=== PATIENT | female | born 1970 | race Caucasian/White ===

== ENCOUNTER → 2017-03-15 | Outpatient (CLI) | payer OTHER ==
[~2017-03-15] MED LIST: PANT40TA PO; PROP40TA5 PO; TPM25 PO; VENL150C56 PO
--- NOTE | 2017-03-16 13:16 | MAMMOGRAPHY REPORT ---
BILATERAL DIGITAL SCREENING MAMMOGRAM TOMOSYNTHESIS WITH CAD: 03/15/2017 CLINICAL HISTORY: Routine screening examination. TECHNIQUE: Breast tomosynthesis in addition to standard 2D mammography was performed. Current study was also evaluated with a Computer Aided Detection (CAD) system. COMPARISON: Comparison is made to exams dated: 03/12/2016 mammogram, 10/30/2015 mammogram, 04/29/2015 mammogram, 04/29/2015 ultrasound, 03/11/2015 mammogram, and 03/07/2014 mammogram - [facility]. BREAST COMPOSITION: There are scattered areas of fibroglandular density in both breasts. FINDINGS: There is evidence of prior reduction mammoplasty. Mild involutional changes compared to prior mammograms. No new suspicious mass, architectural distortion or cluster of microcalcification s is seen. IMPRESSION: ACR BI-RADS CATEGORY 1: NEGATIVE There is no mammographic evidence of malignancy. A 1 year screening mammogram is recommended. The p atient will receive written notification of the results. Approximately 10% of breast cancers are not detected with mammography. A negative mammographic repor t should not delay biopsy if a clinically suggestive mass is present. Paige Mccabe M.D. ay/:03/15/2017 21:49:36 Postmaster: Lizz REINOSO(R)(M), [facility] letter sent: Normal 1/2 BI-RADS Code: ACR BI-RADS Category 1: Negative
== END | disposition home or self-care (01) ==
LOC: C.MAMM 11:04
PROVIDERS: ATTEND Internal Medicine
DX: Z12.31 Encounter for screening mammogram for malignant neoplasm of breast (principal)

== ENCOUNTER → 2017-03-22 | Outpatient (CLI) | payer OTHER ==
[2017-03-22 13:04] LABS: ALT/SGPT 27 U/L (12-78); AST/SGOT 17 U/L (15-37); BLOOD UREA NITROGEN 6 mg/dl (7-18); BUN/CREATININE RATIO 6.4 (10-20); CALCIUM 8.6 mg/dl (8.5-10.1); CARBON DIOXIDE 24 mmol/L (21-32); CHLORIDE 108 mmol/L (98-107); CREATININE 0.91 mg/dl (0.60-1.20); GLUCOSE 89 mg/dl (70-99); POTASSIUM 3.9 mmol/L (3.5-5.1); SODIUM 140 mmol/L (136-145)
[2017-03-22 13:17] LABS: ALB/GLOB RATIO 1.1 (0.9-2); ALKALINE PHOSPHATASE 79 U/L (45-117); CHOLESTEROL 197 mg/dl (0-200); CHOLESTEROL/HDL RATIO 3.3; HDL CHOLESTEROL 59 mg/dl; LDL CHOLESTEROL CALCULATED 116 mg/dl; TRIGLYCERIDES 112 mg/dl (0-150); VERY LOW DENSITY LIPOPROT CALC 22 mg/dl
== END | disposition home or self-care (01) ==
LOC: C.LAB1850 09:52
PROVIDERS: ATTEND Internal Medicine
DX: E55.9 Vitamin D deficiency, unspecified (principal); Z13.220 Encounter for screening for lipoid disorders; R51 Headache

== ENCOUNTER → 2018-02-15 | Outpatient (CLI) | payer OTHER ==
--- NOTE | 2018-02-16 07:52 | MAMMOGRAPHY REPORT ---
BILATERAL DIGITAL DIAGNOSTIC MAMMOGRAM TOMOSYNTHESIS WITH CAD AND TARGETED LEFT ULTRASOUND: 02/15/2018 CLINICAL HISTORY: 47-year-old woman presents with a report of left breast itchiness and also a small pea-sized palpable lump in the approximate 9:00 breast that she noticed 2 months ago. She has a hist ory of bilateral reduction mammoplasty performed between 2013 and 2014. TECHNIQUE: Bilateral breast tomosynthesis in addition to standard 2D mammography was performed. Curre nt study was also evaluated with a Computer Aided Detection (CAD) system. COMPARISON: Comparison is made to exams dated: 03/15/2017 mammogram, 03/12/2016 mammogram, 03/11/2015 m ammogram, 03/07/2014 mammogram - [facility], 12/04/2011 mammogram, and 11/25/2010 [facility]og [facility]. BREAST COMPOSITION: There are scattered areas of fibroglandular density in both breasts. FINDINGS: There is evidence of prior reduction mammoplasty. The glandular pattern is similar to prio r postreduction mammograms, with stable asymmetries in the lateral aspect of each breast. A triangle palpable marker overlies the medial anterior left breast at approximately 9:00, denoting the area of palpable lump pointed out by the patient. There is no evidence of a new suspicious mass, asymmetry, area of architectural distortion or suspicious calcifications near the area of concern or elsewhere throughout the remainder of each breast. Targeted ultrasound was performed in the medial left breast. The patient was unable to pinpoint the exact lump during my diagnostic evaluation, and therefore I was unable to palpate it myself. However , I scanned the 9:00, 8:00 and 10:00 axes of the left breast in the area where she thinks the lump wa s located for further evaluation. On targeted ultrasound of the left medial breast, there is no evid ence of a suspicious solid or cystic mass. No focal skin thickening or drainable fluid collection. IMPRESSION: ACR BI-RADS CATEGORY 2: BENIGN, TARGETED ULTRASOUND ACR BI-RADS CATEGORY 2: BENIGN 1. Stable bilateral mammograms, without mammographic evidence of malignancy. 2. No targeted sonographic evidence of malignancy in the medial left breast, in the reported area of the lump which was felt by the patient. It should be noted she was unable to pinpoint the exact loc ation of the lump today so I was unable to palpate it myself. However, continued clinical follow-up and clinical monitoring is recommended, as biopsy of a clinically suspicious mass should not be precl uded by negative imaging. 3. No definite suspicious left breast abnormality is identified to explain left breast pruritus, and again continued clinical follow-up is recommended. 4. Otherwise recommend routine screening mammography in 1 year. These results and recommendations were discussed with the patient at the time of the exam. Approximately 10% of breast cancers are not detected with mammography. A negative mammographic report should not delay biopsy if a clinically suggestive mass is present. Paige Mccabe M.D. ay/:02/15/2018 11:55:42 Extractor Operator: Venancio REINOSO(Pallavi)(M), [facility] letter sent: Normal 1/2 BI-RADS Code: ACR BI-RADS Category 2: Benign Ultrasound BI-RADS: ACR BI-RADS Category 2: Benign
== END | disposition home or self-care (01) ==
LOC: C.MAMM 09:28
PROVIDERS: ATTEND Physician Assistant
DX: R92.8 Other abnormal and inconclusive findings on diagnostic imaging of breast (principal); N63.20 Unspecified lump in the left breast, unspecified quadrant

== ENCOUNTER → 2018-03-23 | Outpatient (CLI) | payer OTHER ==
[2018-03-23 15:49] LABS: ALBUMIN 3.8 gm/dl (3.4-5.0); ALKALINE PHOSPHATASE 88 U/L (45-117); ALT/SGPT 32 U/L (12-78); AST/SGOT 17 U/L (15-37); BLOOD UREA NITROGEN 6 mg/dl (7-18); CALCIUM 8.8 mg/dl (8.5-10.1); CARBON DIOXIDE 24 mmol/L (21-32); CREATININE 0.84 mg/dl (0.60-1.20); GLUCOSE 86 mg/dl (70-99); POTASSIUM 4.1 mmol/L (3.5-5.1); SODIUM 139 mmol/L (136-145); TOTAL PROTEIN 7.9 gm/dl (6.4-8.2)
== END | disposition home or self-care (01) ==
LOC: C.LAB1850 13:30
PROVIDERS: ATTEND Internal Medicine
DX: E03.9 Hypothyroidism, unspecified (principal); E55.9 Vitamin D deficiency, unspecified

== ENCOUNTER 2025-03-04 08:36 | Inpatient (IN) ==
--- NOTE | 2025-03-04 09:15 | Emergency Department Note ---
ED DC CONDITION Conditon at Discharge Condition at Discharge: Fair Impression & Plan Constipation, Abdominal pain, Colitis, Leukocytosis ED Provider Note CHIEF COMPLAINT: Abdominal pain HISTORY OF PRESENT ILLNESS: This 54F patient with a history of gastroparesis, chronic constipations, NAFLD, IBS presents to the emergency department with LLQ abdominal pain, nausea, constipation for 1.5 weeks. Pain is 10/10 and radiates laterally and inferiorly. No bowel movement since Wednesday-normally has BM daily. New onset dizziness, chills. Reports taking zofran at home without relief. Tried to take mg citrate at home this morning which resulted in 1x nonbloody yellow emesis. Enemas x2 at home without relief. Last PO last night at 6pm. No history of bowel obstructions. REVIEW OF SYSTEMS: A review of systems was performed with positives and pertinent negatives listed in the history of present illness. 10 systems were reviewed and are otherwise negative. ALLERGIES: see below MEDICATIONS: see below PMH: see below SOCIAL HISTORY: see below DDx: Bowel obstruction, constipation, diverticulitis, gastroenteritis PHYSICAL EXAM: Vital signs reviewed. General: generally well-appearing 54-year-old female, in some discomfort. HEENT: No scleral icterus, PERRLA, neck supple. Atraumatic. Cardiovascular: Regular rate and rhythm, no extra sounds. Pulmonary: Clear to auscultation bilaterally, normal work of breathing. Abdomen: Soft, Mild diffuse abdominal tenderness positive guarding, no rebound, mildly distended, positive bowel sounds. Musculoskeletal: Atraumatic, no peripheral edema. Neurologic: Patient awake alert and oriented x 3, speech is clear Skin: Warm, dry, no rash EMERGENCY DEPARTMENT COURSE/MDM: [] MONITORING: An order for cardiac monitoring was placed and the patient is noted to be in a normal sinus rhythm at 74 beats per minute. RADIOLOGY: CT of the abdomen pelvis to my interpretation reveals liquid stool throughout the colon with some colonic distention, no clear evidence of obstruction. Per radiology: IMPRESSION: * Findings suggesting acute colitis with mild inflammation along the distal transverse and descending colon. The proximal colon is distended and filled with liquid stool. No significant colonic wall thickening or abrupt caliber change/transition point. Acute colitis could be infectious or inflammatory (i.e. Crohn's) in etiology. * Mild colonic diverticulosis without findings of acute diverticulitis. * Appendix is not identified. * Additional chronic and/or incidental findings as detailed above. DISPOSITION: Past Med/Surg History Problem List (Updated 03/04/25 @ 14:34 by Marcela Llamas MD) Leukocytosis (Acute) Colitis (Acute) Abdominal pain (Acute) Constipation (Acute) Encounter for health maintenance examination (Chronic) Chronic cough Allergic rhinitis with postnasal drip Asthma Abnormal x-ray Lumbar radiculopathy Hair loss Chronic constipation Gastroparesis Breast pain, right Breast pain, left Reactive airway disease Mixed hyperlipidemia Metabolic syndrome Prediabetes EKG abnormalities Restless leg syndrome Paresthesias Plantar fasciitis Pain in both feet Vitamin B12 deficiency Breast hypertrophy Seborrheic keratosis Plantar fasciitis, bilateral Chronic migraine Cervicalgia Irritable bowel syndrome with diarrhea Vitamin D deficiency Sleep disturbance Hypothyroidism Classic migraine with aura Anxiety Actinic keratosis Acid reflux disease Medical History (Updated 03/04/25 @ 14:34 by Marcela Llamas MD) Shortness of breath Recurrent upper respiratory infection (URI) Vaginal Pap smear with ASC-US Abdominal pain Sinusitis NAFLD (nonalcoholic fatty liver disease) Leg pain Gait abnormality Microalbuminuria Acid reflux Hypothyroidism IBS (irritable bowel syndrome) Prediabetes Restless leg syndrome NAFLD (nonalcoholic fatty liver disease) Gastroparesis Chronic constipation Asthma well controll with advair daily Chronic sinusitis, unspecified SOBOE (shortness of breath on exertion) Nausea chronic - off/on History of COVID-19 Fall 2022: loss of taste and smell, severe flu symptoms - still has altered taste and smell currently. October 2021. Loss of taste/smell, aches, fever, cough. No current problems Anxiety Chronic migraine Surgical History Status post breast reduction second surgery with Dr Carr (2021) History of carpal tunnel release right History of esophagogastroduodenoscopy (EGD) History of bilateral breast reduction surgery (~2012) History of carpal tunnel surgery of left wrist x2 History of reversal of tubal ligation History of bilateral tubal ligation History of colonoscopy History of oral surgery precancerous cysts removed from jaw bone at age 15 History of tooth extraction History of wisdom tooth extraction History of tonsillectomy History of endoscopic sinus surgery History of cryosurgery Cervix H/O abdominoplasty S/P laparoscopic hysterectomy Supracervical Family History Mother Ovarian cancer Heart disease Hypothyroidism Myocardial infarction Multiple sclerosis Diabetes Father Heart disease Myocardial infarction Diabetes Grandfather Breast cancer Daughter Thalassemia Brother Graves disease Other No family history of adverse response to anesthesia Denies family history of Colorectal cancer Social History Smoking Status: Never smoker Second Hand Exposure: No; Do You Dip or Chew Tobacco: No; Hx Alcohol Use: No Hx Substance Use: No Preferred Language: Arabic Communication Ability: Effective Advertising Photographer Required: No Beliefs That Will Affect Care: None marital status: Current Living Situation: Spouse Current Living Situation Comment: Lives with current occupational status: employed 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 [employer] Feels Safe at Home: Yes Childhood Exposure to Second-Hand Smoke: Yes (parents smoked) Physical Activity Frequency: 3-4 Times per Week Seatbelt Use: always Sunscreen Use: Yes Assistive Devices: Glasses Allergies Allergies Allergy/AdvReac Type Severity Reaction Status Date / Time clarithromycin AdvReac Intermediate Nausea Verified 03/04/25 12:30 clavulanic acid AdvReac Intermediate Vomiting Verified 03/04/25 12:30 amoxicillin [From Augmentin] AdvReac Mild Vomiting Verified 03/04/25 12:30 codeine AdvReac Mild Vomiting Verified 03/04/25 12:30 metronidazole AdvReac Mild NAUSEA AND Verified 03/04/25 12:30 VOMITING Home Meds Home Medications Medication Instructions Recorded Confirmed famotidine 20 mg tablet 20 mg PO DAILY 03/04/25 03/04/25 ondansetron 4 mg disintegrating 4 mg PO BID PRN Nausea And Vomiting 03/04/25 03/04/25 tablet pantoprazole 40 mg tablet,delayed 40 mg PO DAILY 03/04/25 03/04/25 release spironolactone 50 mg tablet 50 mg PO BID 03/04/25 03/04/25 Previous Rx's Medication Instructions Recorded mecobalamin (vitamin B12) 1,000 1,000 mcg PO QAM #90 tabs 02/15/25 mcg chewable tablet levothyroxine 75 mcg tablet See Rx Instructions .Route .COMPLEX 03/04/25 Results & Data (ED) Vital Signs Vital Signs - 24 hr 03/04/25 08:50 03/04/25 09:23 03/04/25 09:26 Temperature 36.3 C L Temperature Source Temporal Artery Scan Pulse Rate 92 H 78 Pulse Rate [Apical] 74 Respiratory Rate 20 18 Respiratory Effort / Characteristics Non-Labored Spontaneous Non-Labored Respiratory Depth Normal Normal Respiratory Pattern Regular Blood Pressure 117/74 Blood Pressure [Right Arm] 148/94 H Blood Pressure Mean 88 Blood Pressure Mean [Right Arm] 112 Pulse Oximetry 99 99 Oxygen Delivery Method Room Air Room Air Sepsis Recent Fever Within 48 Hours No Sepsis New/Unexplained Change in Mental Status N/A Sepsis Action Taken by Nursing No Action Required 03/04/25 12:08 Temperature Temperature Source Pulse Rate Pulse Rate [Apical] 79 Respiratory Rate 25 H Respiratory Effort / Characteristics Respiratory Depth Respiratory Pattern Blood Pressure Blood Pressure [Right Arm] 148/91 H Blood Pressure Mean Blood Pressure Mean [Right Arm] 110 Pulse Oximetry 97 Oxygen Delivery Method Room Air Sepsis Recent Fever Within 48 Hours Sepsis New/Unexplained Change in Mental Status Sepsis Action Taken by Nursing Laboratory Data 03/04/25 09:13 03/04/25 09:13 Lab Results 03/04/25 Range/Units 09:13 WBC 15.28 H (4.8-10.8) K/ul RBC 5.79 H (4.20-5.40) M/uL Hgb 17.8 H (12.0-16.0) g/dl Hct 51.6 H (37.0-47.0) % MCV 89.1 (80.0-100.0) fL MCH 30.7 (25.0-34.0) pg MCHC 34.5 (32.0-36.0) g/dL RDW Std Deviation 42.1 (36.4-46.3) fL RDW Coeff of Marry 12.9 (11.5-14.5) % Plt Count 284 (130-400) K/uL MPV 9.6 (9.4-12.4) fL Immature Gran % (Auto) 0.5 % Neut % (Auto) 84.4 % Lymph % (Auto) 9.8 % [place] % (Auto) 4.8 % Eos % (Auto) 0.1 % Baso % (Auto) 0.4 % Neut # (Auto) 12.90 H (1.40-6.50) K/uL Lymph # (Auto) 1.49 (1.20-3.40) K/uL [place] # (Auto) 0.74 H (0.11-0.59) K/uL Eos # (Auto) 0.02 (0.00-0.50) K/uL Baso # (Auto) 0.06 (0.00-0.20) K/uL Immature Gran # (Auto) 0.07 (0.01-0.20) K/uL Sodium 138 (136-145) mmol/L Potassium 4.3 (3.5-5.1) mmol/L Chloride 101 (98-107) mmol/L Carbon Dioxide 27 (21-32) mmol/L Anion Gap 10 (3-11) BUN 11 (6-23) mg/dl Creatinine 1.03 (0.6-1.2) mg/dl Est Cr Clr Drug Dosing 49.8 ml/min eGFR 64.21 BUN/Creatinine Ratio 10.7 (10-20) Glucose 123 H (70-99(Fasting)) mg/dl Calcium 10.8 H (8.6-10.3) mg/dl Total Bilirubin 0.6 (0.2-1.0) mg/dl AST 17 (13-39) U/L ALT 16 (7-52) U/L Alkaline Phosphatase 75 (34-104) U/L Total Protein 8.5 H (6.0-8.3) gm/dl Albumin 5.3 H (3.4-5.0) gm/dl Globulin 3.2 (2.5-4.0) gm/dl Albumin/Globulin Ratio 1.7 (0.9-2) Lipase 41 (11-82) U/L Administered Medications Hydromorphone HCl (Hydromorphone Inj 1 Mg/Ml Syringe) 1 mg IV Q4H PRN PRN Reason: Pain Scale 6,7,8,9,10 Stop: 03/18/25 12:47 Last Admin: 03/04/25 13:25 Dose: 1 mg Documented By: LAURIE Discontinued Medications Bisacodyl (Bisacodyl 10 Mg Supp) 10 mg OR NOW STA Stop: 03/04/25 12:12 Last Admin: 03/04/25 13:25 Dose: 10 mg Documented By: LAURIE Sodium Chloride (Nss) 1,000 mls @ 999 mls/hr IV .Q1H1M STA Stop: 03/04/25 10:30 Last Infusion: 03/04/25 12:07 Dose: Infused Documented By: Admin: 03/04/25 09:43 Dose: 999 mls/hr Documented By: GABRIEL Piperacillin Sod/Tazobactam Sod (Zosyn) 4.5 gm in 100 mls @ 200 mls/hr IV NOW ONE; Protocol Stop: 03/04/25 12:46 Last Admin: 03/04/25 13:26 Dose: 200 mls/hr Documented By: LAURIE Ioversol (Optiray 320 100ml) 94 ml IV ONCE ONE Stop: 03/04/25 10:14 Last Admin: 03/04/25 10:14 Dose: 94 ml Documented By: DK Ketorolac Tromethamine (Ketorolac Tromethamine 15 Mg/Ml Vial) 10 mg IV NOW STA Stop: 03/04/25 09:31 Last Admin: 03/04/25 09:42 Dose: 10 mg Documented By: GABRIEL Morphine Sulfate (Morphine Sulfate 4 Mg/Ml 1 Ml Carp\Vial) 4 mg IV NOW STA Stop: 03/04/25 09:40 Last Admin: 03/04/25 09:43 Dose: 4 mg Documented By: GABRIEL Ondansetron HCl (Ondansetron Inj 2 Mg/Ml 2 Ml Vial) 4 mg IV NOW STA Stop: 03/04/25 09:31 Last Admin: 03/04/25 09:43 Dose: 4 mg Documented By: GABRIEL Ondansetron HCl (Ondansetron Inj 2 Mg/Ml 2 Ml Vial) 4 mg IV NOW STA Stop: 03/04/25 12:12 Last Admin: 03/04/25 13:26 Dose: 4 mg Documented By: LAURIE Imaging Data Radiologist's Impression: Abdomen/Pelvis CT 03/04/25 09:30 HISTORY: Left lower quadrant abdominal pain. TECHNIQUE: Helical CT imaging of the abdomen and pelvis was performed with IV contrast. Images are presented in axial, sagittal, and coronal reformats. COMPARISON: CT of the abdomen pelvis with contrast dated 09/02/2023. FINDINGS: Lung Bases/Inferior Mediastinum: Unremarkable Liver: Unremarkable Gallbladder: Unremarkable Spleen: Unremarkable Adrenals: Unremarkable Pancreas: Unremarkable Kidneys: Subcentimeter hypodense cortical lesions within both kidneys are too small to accurately characterize, but favor small cyst statistically. No hydronephrosis. Stomach/Bowel: Distal esophagus is unremarkable. The stomach and duodenum are unremarkable. The small bowel loops are normal in caliber. Oral contrast is present in the colon. There is mild colonic diverticulosis. The transverse colon, ascending colon, and cecum are dilated and fluid-filled. Cecum measuring up to 6.7 cm in diameter. The appendix is not identified. Mild inflammation along the descending colon. No abrupt caliber change of the colon. Findings favoring acute nonspecific colitis. Lymph nodes: Unremarkable Vasculature: Unremarkable Pelvis: Urinary bladder is unremarkable. No adnexal mass. Uterus is either atrophic or surgically absent. Soft Tissues: Postsurgical changes of both breasts with areas of fat necrosis. Soft tissues of the body wall are otherwise unremarkable. Bones: Mild degenerative changes of the hips and pelvis. No acute osseous abnormality. IMPRESSION: * Findings suggesting acute colitis with mild inflammation along the distal transverse and descending colon. The proximal colon is distended and filled with liquid stool. No significant colonic wall thickening or abrupt caliber change/transition point. Acute colitis could be infectious or inflammatory (i.e. Crohn's) in etiology. * Mild colonic diverticulosis without findings of acute diverticulitis. * Appendix is not identified. * Additional chronic and/or incidental findings as detailed above. ACT 112: Positive. There are findings on this exam that require communication between the performing entity and the patient following Patient Test Result Information Act ([place] ACT 112) guidelines. Electronically signed by Gen Sandoval 03-04-2025 10:44 AM Discharge Plan Visit Data Chief Complaint: Abdominal Pain Stated Complaint: NO BOWELMOVEMENT, ABD PAIN, NAUSEA ED Provider: Marcela Llamas Discharge Problem: Constipation, Abdominal pain, Colitis, Leukocytosis Patient Disposition: Admitted As Inpatient Condition: Good Discharge Instructions Interventions: ED Discharge Assessment Last Done: 03/04/25 14:10 Discharge Problem: Constipation Qualifiers: Constipation type: slow transit constipation Qualified Code(s): K59.01 - Slow transit constipation Abdominal pain Qualifiers: Abdominal location: periumbilical Qualified Code(s): R10.33 - Periumbilical pain Leukocytosis Qualifiers: Leukocytosis type: bandemia Qualified Code(s): D72.825 - Bandemia
[2025-03-04 09:40] LABS: Basophils # (auto) 0.06 K/uL (0.00-0.20); Basophils % (auto) 0.4 %; Eosinophils # (auto) 0.02 K/uL (0.00-0.50); Eosinophils % (auto) 0.1 %; Hematocrit (blood only) 51.6 % (37.0-47.0); Hemoglobin 17.8 g/dl (12.0-16.0); Immature Granulocytes # (auto) 0.07 K/uL (0.01-0.20); Immature Granulocytes % (auto) 0.5 %; Lymphocytes # (auto) 1.49 K/uL (1.20-3.40); Lymphocytes % (auto) 9.8 %; Mean Corpuscular Hemoglobin 30.7 pg (25.0-34.0); Mean Corpuscular Hgb Conc 34.5 g/dL (32.0-36.0); Mean Corpuscular Volume 89.1 fL (80.0-100.0); Mean Platelet Volume 9.6 fL (9.4-12.4); Monocytes # (auto) 0.74 K/uL (0.11-0.59); Monocytes % (auto) 4.8 %; Neutrophils % (auto) 84.4 %; Platelet Count 284 K/uL (130-400); RDW Coefficient of Variation 12.9 % (11.5-14.5); RDW Standard Deviation 42.1 fL (36.4-46.3); Red Blood Count 5.79 M/uL (4.20-5.40); White Blood Count 15.28 K/ul (4.8-10.8)
[2025-03-04] MEDS: KETOROLAC TROMETHAMINE 15 MG/ML VIAL IV STA (09:42)
[2025-03-04] MEDS: MoRPHine SULFATE 4 MG/ML 1 ML CARP\\VIAL IV STA (09:43)
[2025-03-04] MEDS: SODIUM CHLORIDE 0.9% 1,000 ML IV STA (09:43)
[2025-03-04] MEDS: ONDANSETRON INJ 2 MG/ML 2 ML VIAL IV STA ×2 (09:43→13:26)
[2025-03-04 09:59] LABS: Albumin Globulin Ratio 1.7 (0.9-2); Albumin Level 5.3 gm/dl (3.4-5.0); BUN Creatinine Ratio 10.7 (10-20); Bilirubin,Total 0.6 mg/dl (0.2-1.0); Calcium 10.8 mg/dl (8.6-10.3); Creatinine Clr Calc Pharmacy 49.8 ml/min; Globulin 3.2 gm/dl (2.5-4.0); Potassium 4.3 mmol/L (3.5-5.1); Total Protein 8.5 gm/dl (6.0-8.3)
[2025-03-04] MEDS: OPTIRAY 320 100ml IV ONE (10:14)
--- NOTE | 2025-03-04 10:44 | CT Scan Report ---
HISTORY: Left lower quadrant abdominal pain. TECHNIQUE: Helical CT imaging of the abdomen and pelvis was performed with IV contrast. Images are presented in axial, sagittal, and coronal reformats. COMPARISON: CT of the abdomen pelvis with contrast dated 09/02/2023. FINDINGS: Lung Bases/Inferior Mediastinum: Unremarkable Liver: Unremarkable Gallbladder: Unremarkable Spleen: Unremarkable Adrenals: Unremarkable Pancreas: Unremarkable Kidneys: Subcentimeter hypodense cortical lesions within both kidneys are too small to accurately characterize, but favor small cyst statistically. No hydronephrosis. Stomach/Bowel: Distal esophagus is unremarkable. The stomach and duodenum are unremarkable. The small bowel loops are normal in caliber. Oral contrast is present in the colon. There is mild colonic diverticulosis. The transverse colon, ascending colon, and cecum are dilated and fluid-filled. Cecum measuring up to 6.7 cm in diameter. The appendix is not identified. Mild inflammation along the descending colon. No abrupt caliber change of the colon. Findings favoring acute nonspecific colitis. Lymph nodes: Unremarkable Vasculature: Unremarkable Pelvis: Urinary bladder is unremarkable. No adnexal mass. Uterus is either atrophic or surgically absent. Soft Tissues: Postsurgical changes of both breasts with areas of fat necrosis. Soft tissues of the body wall are otherwise unremarkable. Bones: Mild degenerative changes of the hips and pelvis. No acute osseous abnormality. IMPRESSION: * Findings suggesting acute colitis with mild inflammation along the distal transverse and descending colon. The proximal colon is distended and filled with liquid stool. No significant colonic wall thickening or abrupt caliber change/transition point. Acute colitis could be infectious or inflammatory (i.e. Crohn's) in etiology. * Mild colonic diverticulosis without findings of acute diverticulitis. * Appendix is not identified. * Additional chronic and/or incidental findings as detailed above. ACT 112: Positive. There are findings on this exam that require communication between the performing entity and the patient following Patient Test Result Information Act ([place] ACT 112) guidelines. Electronically signed by Gen Sandoval 03-04-2025 10:44 AM
--- NOTE | 2025-03-04 12:40 | History & Physical Report ---
Date of Service March 04, 2025 Assessment & Plan (1) Hypothyroidism: (2) Acid reflux disease: Plan 54-year-old female suffers from chronic constipation presents with periumbilical abdominal pain for 10 days and no bowel movements for [address] scan shows a fluid-filled colon with concern for colitis. Patient has hypothyroidism minor delay in gastric emptying, metabolic syndrome, prediabetes, vitamin D deficiency #Abdominal pain, CT abdomen pelvis shows significant dilatation of the large bowel. Initiated on Zosyn in the emergency department this will be continued for concern for stercoral colitis or colitis in general. . Pain control with parenteral medications. Cathartic agents are considered, however will try to use soapsuds enemas to remove the left-sided stool mass before we try to evacuate the right-sided colon. Hold spironolactone for metabolic syndrome given its dehydration affects on constipation #Hypothyroidism. TSH is low T4 is within normal range concern that dose may be too elevated will request the patient follow-up with primary care provider DVT prevention is SCDs at this time History of Present Illness Primary Care Provider: Jeri Gage MD 54-year-old female presents with abdominal pain with a history of chronic constipation. Reportedly no bowel movement since Wednesday. Pains been for 1-1/2 weeks. Patient sees [facility] for chronic constipation. In the emergency department she had a rectal examination without much stool and attempted to collect suppository. CT scan abdomen pelvis does not show any obst ruction but significant stool retention. Patient has leukocytosis and with the significant stool retention concern for stercoral colitis. Allergies Allergy/AdvReac Type Severity Reaction Status Date / Time clarithromycin AdvReac Intermediate Nausea Verified 03/04/25 12:30 clavulanic acid AdvReac Intermediate Vomiting Verified 03/04/25 12:30 amoxicillin [From Augmentin] AdvReac Mild Vomiting Verified 03/04/25 12:30 codeine AdvReac Mild Vomiting Verified 03/04/25 12:30 metronidazole AdvReac Mild NAUSEA AND Verified 03/04/25 12:30 VOMITING Home Medications Medication Instructions Recorded Confirmed Type mecobalamin (vitamin B12) 1,000 1,000 mcg PO QAM #90 tabs 02/15/25 03/04/25 Rx mcg chewable tablet famotidine 20 mg tablet 20 mg PO DAILY 03/04/25 03/04/25 History levothyroxine 75 mcg tablet See Rx Instructions .Route .COMPLEX 03/04/25 03/04/25 Rx ondansetron 4 mg disintegrating 4 mg PO BID PRN Nausea And Vomiting 03/04/25 03/04/25 History tablet pantoprazole 40 mg tablet,delayed 40 mg PO DAILY 03/04/25 03/04/25 History release spironolactone 50 mg tablet 50 mg PO BID 03/04/25 03/04/25 History Past Med/Surg History Problem List (Updated 01/16/25 @ 15:17 by Jeri Gage MD) Encounter for health maintenance examination (Chronic) Chronic cough Allergic rhinitis with postnasal drip Asthma Abnormal x-ray Lumbar radiculopathy Hair loss Chronic constipation Gastroparesis Breast pain, right Breast pain, left Reactive airway disease Mixed hyperlipidemia Metabolic syndrome Prediabetes EKG abnormalities Restless leg syndrome Paresthesias Plantar fasciitis Pain in both feet Vitamin B12 deficiency Breast hypertrophy Seborrheic keratosis Plantar fasciitis, bilateral Chronic migraine Cervicalgia Irritable bowel syndrome with diarrhea Vitamin D deficiency Sleep disturbance Hypothyroidism Classic migraine with aura Anxiety Actinic keratosis Acid reflux disease Medical History (Updated 01/16/25 @ 15:17 by Jeri Gage MD) Shortness of breath Recurrent upper respiratory infection (URI) Vaginal Pap smear with ASC-US Abdominal pain Sinusitis NAFLD (nonalcoholic fatty liver disease) Leg pain Gait abnormality Microalbuminuria Acid reflux Hypothyroidism IBS (irritable bowel syndrome) Prediabetes Restless leg syndrome NAFLD (nonalcoholic fatty liver disease) Gastroparesis Chronic constipation Asthma well controll with advair daily Chronic sinusitis, unspecified SOBOE (shortness of breath on exertion) Nausea chronic - off/on History of COVID-19 Fall 2022: loss of taste and smell, severe flu symptoms - still has altered taste and smell currently. October 2021. Loss of taste/smell, aches, fever, cough. No current problems Anxiety Chronic migraine Surgical History Status post breast reduction second surgery with Dr Carr (2021) History of carpal tunnel release right History of esophagogastroduodenoscopy (EGD) History of bilateral breast reduction surgery (~2012) History of carpal tunnel surgery of left wrist x2 History of reversal of tubal ligation History of bilateral tubal ligation History of colonoscopy History of oral surgery precancerous cysts removed from jaw bone at age 15 History of tooth extraction History of wisdom tooth extraction History of tonsillectomy History of endoscopic sinus surgery History of cryosurgery Cervix H/O abdominoplasty S/P laparoscopic hysterectomy Supracervical Family History Mother Ovarian cancer Heart disease Hypothyroidism Myocardial infarction Multiple sclerosis Diabetes Father Heart disease Myocardial infarction Diabetes Grandfather Breast cancer Daughter Thalassemia Brother Graves disease Other No family history of adverse response to anesthesia Denies family history of Colorectal cancer Social History Smoking Status: Never smoker Second Hand Exposure: No; Do You Dip or Chew Tobacco: No; Hx Alcohol Use: No Hx Substance Use: No Preferred Language: [place] Communication Ability: Effective Automobile Rental Agent Required: No Beliefs That Will Affect Care: None marital status: Current Living Situation: Spouse Current Living Situation Comment: Lives with current occupational status: employed 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 [employer] Feels Safe at Home: Yes Childhood Exposure to Second-Hand Smoke: Yes (parents smoked) Physical Activity Frequency: 3-4 Times per Week Seatbelt Use: always Sunscreen Use: Yes Assistive Devices: Glasses Review of Systems Review of Systems: Moderate distress and fatigue no headache, no visual changes no speech or swallowing issues no chest pain, pressure or palpitations no shortness of breath, cough or wheezes Periumbilical abdominal pain crampy in nature crescendo decrescendo nausea without vomiting and significant constipation no dysuria, hematuria or frequency no focal joint pain or swelling no back pain, CVA tenderness or radicular pain no bruising, bleeding or rashes no focal signs of weakness or numbness or altered sensation no complaints of anxiety or depression.. Physical Exam Physical Exam: The patient appeared well nourished and normally developed. Vital signs as documented. Head exam is normocephalic atraumatic Neck is without JVD, thyromegaly, or carotid bruits. Lungs are clear to auscultation, no focal loss of breath sounds Cardiac exam, Rhythm is regular.. No murmurs, rubs or gallops. Abdominal exam reveals normal to hyperactive bowel sounds, soft minor discomfort to the bilateral lower quadrants no rebound or guarding Extremities are nonedematous and both pedal pulses are present Neurologic exam is alert and oriented, no focal loss of strength or sensation Skin is without bruises or rashes Psychologically is without concerns for anxiety or depression.. Results & Data Results & Data Vital Signs (Past 12 Hours) Vital Signs Temp Pulse Pulse Resp BP BP Pulse Ox 03/04/25 12:08 79 25 H 148/91 H 97 03/04/25 09:26 78 03/04/25 09:23 74 18 148/94 H 99 03/04/25 08:50 97.3 F L 92 H 20 117/74 99 O2 Del Method 03/04/25 12:08 Room Air 03/04/25 09:26 03/04/25 09:23 Room Air 03/04/25 08:50 Room Air Laboratory Results reviewed cbc reviewed chemistry Code Status & VTE Plan VTE Prophylaxis Plan VTE Prophylaxis will be ordered: Yes PG Care Time/CCT Total # of Minutes Spent Total Time Spent with Patient: Total time spent is greater than 50% in coordination of care (as documented) at patient's floor/unit and/or counseling patient: Coding Level of Care Code 44445 INT INP/OBS CARE 2/55MIN Diagnoses Hypothyroidism E03.9 Acid reflux disease K21.9
[2025-03-04] MEDS ORDERED: HYDROmorphone INJ 0.5 MG/0.5 ML SYR IV PRN (12:48)
[2025-03-04] MEDS: HYDROmorphone INJ 1 MG/ML SYRINGE IV PRN (13:25)
[2025-03-04] MEDS: bisacodyL 10 MG SUPP PR STA (13:25)
[2025-03-04] MEDS: PIPERACILLIN/TAZOBACTAM 4.5 GM/100 ML BAG IV ONE (13:26)
[2025-03-04] MEDS: LACTATED RINGER'S 1,000 ML IV SCH (15:00)
[2025-03-04] MEDS: PROMETHAZINE 12.5 MG/50.5 ML BAG IV PRN (16:08)
[2025-03-04] MEDS: PIPERACILLIN/TAZOBACTAM 4.5 GM/100 ML BAG IV SCH (17:51)
[2025-03-04 18:18] LABS: Appearance Urine Clear (Clear); Bacteria Urine Automated None Seen (None Seen); Bilirubin Urine Negative (Negative); Blood Urine Negative (Negative); Cast Urine Automated 0-2 /lpf (0-2); Color Urine Dark Yellow; Epithelial Cell Urine Auto 0-2 /hpf (0-2); Glucose Urine UA Negative (Negative); Ketones Urine 1+ (Negative); Leukocyte Esterase Urine Negative (Negative); Nitrite Urine Negative (Negative); Protein Urine Trace (Negative); RBC Urine Automated 0-2 /hpf (0-2); Specific Gravity Urine > 1.045 (1.000-1.030); Urobilinogen Urine Negative (Negative); WBC Urine Automated 0-5 /hpf (0-5); pH Urine 5.5 (4.5-7.5)
[2025-03-04 18:39] LABS: Adenovirus F 40/41 PCR Not Detected (NotDetected); Astrovirus PCR Not Detected (NotDetected); Campylobacter PCR Not Detected (NotDetected); Cryptosporidium PCR Not Detected (NotDetected); Cyclospora cayetanensis PCR Not Detected (NotDetected); Entamoeba histolytica PCR Not Detected (NotDetected); Enteroaggregative E.coli(EAEC) Not Detected (NotDetected); Enteropathogenic E.coli (EPEC) Not Detected (NotDetected); Enterotoxigenic E.coli (ETEC) Not Detected (NotDetected); Giardia lamblia PCR Not Detected (NotDetected); Norovirus GI/GII PCR Not Detected (NotDetected); Plesiomonas shigelloides PCR Not Detected (NotDetected); Rotavirus A PCR Not Detected (NotDetected); Salmonella PCR Not Detected (NotDetected); Sapovirus PCR Not Detected (NotDetected); Shiga-like Toxin E.coli (STEC) Not Detected (NotDetected); Shigella/Enteroinvasive E.coli Not Detected (NotDetected); Vibrio cholerae PCR Not Detected (NotDetected); Vibrio species PCR Not Detected (NotDetected); Yersinia enterocolitica PCR Not Detected (NotDetected)
[2025-03-04] MEDS: POLYETHYLENE (MIRALAX) 17 GM PACK PO ONE (19:03)
[2025-03-05 07:57] LABS: Mean Corpuscular Hemoglobin 30.7 pg (25.0-34.0); Mean Corpuscular Hgb Conc 33.3 g/dL (32.0-36.0); Mean Corpuscular Volume 92.1 fL (80.0-100.0); Mean Platelet Volume 9.7 fL (9.4-12.4); Platelet Count 224 K/uL (130-400); RDW Coefficient of Variation 13.2 % (11.5-14.5); RDW Standard Deviation 45.1 fL (36.4-46.3); Red Blood Count 4.56 M/uL (4.20-5.40); White Blood Count 11.92 K/ul (4.8-10.8)
[2025-03-05 08:16] LABS: BUN Creatinine Ratio 11.4 (10-20); Calcium 8.5 mg/dl (8.6-10.3); Creatinine Clr Calc Pharmacy 58.6 ml/min; Potassium 3.9 mmol/L (3.5-5.1)
[2025-03-05] MEDS: bisacodyL 10 MG SUPP PR STA (13:28)
[2025-03-05] MEDS: MAGNESIUM CITRATE 296 ML/BTL PO STA (13:29)
--- NOTE | 2025-03-05 17:32 | Hospitalist Progress Note ---
Date of Service March 05, 2025 Assessment & Plan (1) Constipation: (2) Hypothyroidism: (3) Acid reflux disease: Plan 54-year-old female suffers from chronic constipation presents with periumbilical abdominal pain for 10 days and no bowel movements for [address] scan shows a fluid-filled colon with concern for colitis. Patient has hypothyroidism minor delay in gastric emptying, metabolic syndrome, prediabetes, vitamin D deficiency #Abdominal pain, CT abdomen pelvis shows significant dilatation of the large bowel. Initiated on Zosyn in the emergency department this will be continued for concern for stercoral colitis or colitis in general. . Pain control with parenteral medications. mild results with enema, discussed case with GI med, reviewed CT, will use dulcolax and mag citrate. Hold spironolactone for metabolic syndrome given its dehydration affects on constipation #Hypothyroidism. TSH is low T4 is within normal range concern that dose may be too elevated will request the patient follow-up with primary care provider DVT prevention is SCDs at this time Admission and Anticipated Discharge Date Admission Date: March 04, 2025 Subjective minor relief from enema, still no large bowel output pain is controlled Physical Exam Physical Exam: The patient appeared well nourished and normally developed. Vital signs as documented. Head exam is normocephalic atraumatic Neck is without JVD, thyromegaly, or carotid bruits. Lungs are clear to auscultation, no focal loss of breath sounds Cardiac exam, Rhythm is regular.. No murmurs, rubs or gallops. Abdominal exam reveals normal to hyperactive bowel sounds, remains soft minor discomfort to the bilateral lower quadrants no rebound or guarding Extremities are nonedematous and both pedal pulses are present Neurologic exam is alert and oriented, no focal loss of strength or sensation Skin is without bruises or rashes Psychologically is without concerns for anxiety or depression.. Results & Data Results & Data Vital Signs (Past 12 Hours) Vital Signs Temp Pulse Resp BP Pulse Ox O2 Del Method 03/05/25 09:40 98.8 F 87 18 124/79 93 Room Air Laboratory Results review cbc review chemistry i personally reviewed CT with GI safety and health consultant and discussed plan of care PG Care Time/CCT Total # of Minutes Spent Total Time Spent with Patient: Total time spent is greater than 50% in coordination of care (as documented) at patient's floor/unit and/or counseling patient: Coding Level of Care Code 52158 SUB INP/OBS CARE 235MIN Diagnoses Constipation K59.01 Constipation type: slow transit constipation Hypothyroidism E03.9 Acid reflux disease K21.9 (1) Constipation Constipation type: slow transit constipation Qualified Code(s): K59.01 - Slow transit constipation
[2025-03-05] MEDS: MAGNESIUM CITRATE 296 ML/BTL PO ONE (20:12)
[2025-03-05] MEDS: ONDANSETRON INJ 2 MG/ML 2 ML VIAL IV PRN (22:15)
[2025-03-06 07:09] LABS: Hematocrit (blood only) 45.5 % (37.0-47.0); Hemoglobin 14.8 g/dl (12.0-16.0); Mean Corpuscular Hemoglobin 30.7 pg (25.0-34.0); Mean Corpuscular Hgb Conc 32.5 g/dL (32.0-36.0); Mean Corpuscular Volume 94.4 fL (80.0-100.0); Mean Platelet Volume 9.7 fL (9.4-12.4); Platelet Count 245 K/uL (130-400); RDW Coefficient of Variation 13.2 % (11.5-14.5); Red Blood Count 4.82 M/uL (4.20-5.40); White Blood Count 11.35 K/ul (4.8-10.8)
[2025-03-06 07:28] LABS: BUN Creatinine Ratio 11.2 (10-20); Calcium 9.2 mg/dl (8.6-10.3); Creatinine Clr Calc Pharmacy 52.6 ml/min; Potassium 4.5 mmol/L (3.5-5.1)
[2025-03-06] MEDS: METHYLNALTREXONE BROMIDE 12 MG/0.6 ML VIAL SQ ONE (10:39)
--- NOTE | 2025-03-06 11:04 | CT Scan Report ---
CT OF THE ABDOMEN AND PELVIS WITHOUT CONTRAST CLINICAL HISTORY: Evaluate right colonic distention. COMPARISON STUDY: CT of the abdomen and pelvis March 04, 2025. TECHNIQUE: Axial images of the abdomen and pelvis were obtained without IV contrast. Images were revi ewed in the axial, sagittal, and coronal planes. Automated exposure control was utilized for the steven dy. A dose lowering technique was utilized adhering to the principles of ALARA. FINDINGS: Visualized portions of the lung bases are unremarkable. Linear densities represent atelecta sis. No pneumatosis, free air or portal venous gas is present. Evaluation of the abdomen and pelvis i s suboptimal on this unenhanced exam. Liver, spleen, adrenal glands, kidneys and pancreas are unremar kable. The gallbladder is mildly distended. Moderate colonic dilatation is similar to CT of March 04. Ascending colon measures 8.4 cm in transverse diameter. The colon is fluid-filled. No transition point is present. The amount of stool within the sigmoid colon has diminished since prior CT. Trace a scites and mild pericolonic stranding has developed. There are no fluid collections. There is no lymp hadenopathy. There has been interval development of prominent fluid-filled distal small bowel loops. IMPRESSION: 1. No significant change in moderate colonic dilatation, greatest within the right colon, since CT of March 04, 2025. Ascending colon measures 8.4 cm in caliber. Interval development of a small amount of a scites and mild pericolonic stranding. No transition point to suggest obstruction. The findings favor a nonspecific colitis. 2. Interval development of mildly dilated fluid-filled distal small bowel loops. ACT 112: Negative or not required by law. Electronically signed by: Jv Nixon M.D. 03/06/2025 11:03 AM
--- NOTE | 2025-03-06 13:58 | Hospitalist Progress Note ---
Date of Service March 06, 2025 Assessment & Plan (1) Constipation: (2) Hypothyroidism: (3) Acid reflux disease: Plan 54-year-old female suffers from chronic constipation presents with periumbilical abdominal pain for 10 days and no bowel movements for [address] scan shows a fluid-filled colon with concern for colitis. Patient has hypothyroidism minor delay in gastric emptying, metabolic syndrome, prediabetes, vitamin D deficiency #Abdominal pain,repeat CT abdomen pelvis after emenas and mag citrate, shows significant dilatation of the large bowel. Continues on Zosyn for concern for stercoral colitis or colitis in general. . Pain control with parenteral medications. will consult GI medicine now given diliation of large bowel. Hold spironolactone for metabolic syndrome given its dehydration affects on constipation #Hypothyroidism. TSH is low T4 is within normal range concern that dose may be too elevated will request the patient follow-up with primary care provider DVT prevention is SCDs at this time Admission and Anticipated Discharge Date Admission Date: March 04, 2025 Results & Data Results & Data Vital Signs (Past 12 Hours) Vital Signs Temp Pulse Resp BP Pulse Ox O2 Del Method 03/06/25 07:51 97.9 F 96 H 18 126/88 92 Room Air Laboratory Results reviewed cbc reviewed chemistry PG Care Time/CCT Total # of Minutes Spent Total Time Spent with Patient: Total time spent is greater than 50% in coordination of care (as documented) at patient's floor/unit and/or counseling patient: Coding Level of Care Code 25755 SUB INP/OBS CARE 2/35MIN Diagnoses Constipation K59.01 Constipation type: slow transit constipation Hypothyroidism E03.9 Acid reflux disease K21.9 (1) Constipation Constipation type: slow transit constipation Qualified Code(s): K59.01 - Slow transit constipation
--- NOTE | 2025-03-06 14:06 | Gastrointestinal Consultation ---
Date of Consultation March 06, 2025 Assessment & Plan (1) Abdominal pain: 54 year old female with history of metabolic syndrome, hypothyroidism, anxiety, asthma, chronic constipation, gastroparesis and others below who is admitted through the ED on 03/04 w/ abdominal pain, constipation and nausea w/ report of last BM 02/27. CT on arrival suggests stool burden, some inflammatory changes of descending colon but no signs of obstruction. She was treated w/ a bowel regimen (Mag citrate, enema) and IV ABX. Symptoms persist, repeat CT this AM w/o significant change in dilation, ascending colon dilation at 8.4 cm, mildly dilated fluid-filled distal small bowel. She is awake, alert and oriented w/ mild abdominal distention but no rebound/guarding. She has active bowel sounds w/ mild discomfort w/ palpation. Since CTAP this AM she endorses at least 15 non-bloody BMs w/ some improvement of her abdominal discomfort. - Negative stool PCR - Check fecal calprotectin - KUB to reassess colonic dilation - Continue gastroparesis diet as tolerated - Start Miralax 1 capful once daily - Cautious use of narcotic analgesia - Cautious use of antiemetics - Plan for OP colonoscopy unless otherwise indicated during admission I spent a total of 60 minutes on the date of service in review of patient's record, and previously obtained information in person and appropriate medical visit, discussion and education of plan, with patient and/or caregiver, placing orders for tests/referral/procedures as medically necessary and documentation of pertinent clinical information in patient's medical records for their visit today.Thank you for allowing us to participate in the care of this patient. Please call with any acute changes, questions or concerns. Please see addendum below with additional recommendation from my supervising physician. Supervising Physician Co-Signing Physician Notes I personally saw and examined the patient. I have reviewed the chart and agree with the documentation provided by the TIE TAPE MACHINE OPERATOR including discussion about the assessment, treatment and plan. Briefly, 54 year old female with history of metabolic syndrome, hypothyroidism, anxiety, asthma, chronic constipation, gastroparesis and others below who is admitted through the ED on 03/04 w/ abdominal discomfort, constipation. Suggests she has had some changes to her insurance, ran out of [employer]. When she was able to re-start the prescription this seemed too effective, inducing diarrhea so had held the medication. She presented with acute distention with a 8 to 9 cm right colon and impacted bowels. We were curb sided and suggested MiraLAX mag citrate and some Dulcolax suppository. She took that and had more pain and did not completely empty much. She did then get a repeat CT with contrast and everything came out. She had multiple bowel movements and feels a lot better. Will get a KUB and make sure that her bowels have normalized but her belly exam is benign. Supportive care and bowel regimen History of Present Illness Reason for Consultation: refractory colonic distension 8.4 cm Requesting Physician: Darinel Yi MD Attending Physician: Darinel Yi MD History of Present Illness 54 year old female with history of metabolic syndrome, hypothyroidism, anxiety, asthma, chronic constipation, gastroparesis and others below who is admitted through the ED on 03/04 w/ abdominal discomfort, constipation. Suggests she has had some changes to her insurance, ran out of [employer]. When she was able to re- start the prescription this seemed too effective, inducing diarrhea so had held the medication. Reports ongoing issues w/ constipation and recall last BM being Tuesday 02/27. She notes Wednesday she developed lower abd pain, nausea and initially felt this was related to constipation. She took a bottle of mag citrate without relief. [facility] ED care for ongoing pain, constipation and nausea. CT on arrival suggests stool burden, some inflammatory changes of descending colon but no signs of obstruction. She was treated w/ a bowel regimen (Mag citrate, enema) and IV ABX. Symptoms persist, repeat CT this AM w/o significant change in dilation, ascending colon dilation at 8.4 cm, mildly dilated fluid- filled distal small bowel loops but no transition point to suggest obstruction. She does report since CT was obtained this AM she has moved her stools about 15 times. Stools have been loose w/ some small, formed pieces. No black or bloody stools. Pain has improved some but not resolved. Now pain is only prevalent w/ palpation to her abdomen. Nausea has improved w/ bowel movements. No fever, chils, CP, SOB. Stool studies 2024: negative stool PCR CTAP 2024: No significant change in moderate colonic dilatation, greatest within the right colon, since CT of March 04, 2025. Ascending colon measures 8.4 cm in caliber. Interval development of a small amount of ascites and mild pericolonic stranding. No transition point to suggest obstruction. The findings favor a nonspecific colitis. Interval development of mildly dilated fluid-filled distal small bowel loops. CTAP 2024: Findings suggesting acute colitis with mild inflammation along the distal transverse and descending colon. The proximal colon is distended and filled with liquid stool. No significant colonic wall thickening or abrupt caliber change/transition point. Acute colitis could be infectious or inflammatory (i.e. Crohn's) in etiology. GES 2022: Findings are consistent with delayed gastric emptying for solids. EGD 2024: The examined esophagus was normal. - The entire examined stomach was normal. - The examined duodenum was normal. EGD 2019: - Normal esophagus. - Gastritis. Biopsied. - Normal examined duodenum. Colon 2019: - Non-bleeding internal hemorrhoids. - No specimens collected. Family history of GI malignancies: none Family history of IBD: none Allergies Allergy/AdvReac Type Severity Reaction Status Date / Time clarithromycin AdvReac Intermediate Nausea Verified 03/04/25 12:30 clavulanic acid AdvReac Intermediate Vomiting Verified 03/04/25 12:30 amoxicillin [From Augmentin] AdvReac Mild Vomiting Verified 03/04/25 12:30 codeine AdvReac Mild Vomiting Verified 03/04/25 12:30 metronidazole AdvReac Mild NAUSEA AND Verified 03/04/25 12:30 VOMITING Home Medications Medication Instructions Recorded Confirmed Type mecobalamin (vitamin B12) 1,000 1,000 mcg PO QAM #90 tabs 02/15/25 03/04/25 Rx mcg chewable tablet famotidine 20 mg tablet 20 mg PO DAILY 03/04/25 03/04/25 History levothyroxine 75 mcg tablet See Rx Instructions .Route .COMPLEX 03/04/25 03/04/25 Rx ondansetron 4 mg disintegrating 4 mg PO BID PRN Nausea And Vomiting 03/04/25 03/04/25 History tablet pantoprazole 40 mg tablet,delayed 40 mg PO DAILY 03/04/25 03/04/25 History release spironolactone 50 mg tablet 50 mg PO BID 03/04/25 03/04/25 History Patient History Medical History (Updated 03/04/25 @ 14:34 by Marcela Llamas MD) Shortness of breath Recurrent upper respiratory infection (URI) Vaginal Pap smear with ASC-US Abdominal pain Sinusitis NAFLD (nonalcoholic fatty liver disease) Leg pain Gait abnormality Microalbuminuria Acid reflux Hypothyroidism IBS (irritable bowel syndrome) Prediabetes Restless leg syndrome NAFLD (nonalcoholic fatty liver disease) Gastroparesis Chronic constipation Asthma well controll with advair daily Chronic sinusitis, unspecified SOBOE (shortness of breath on exertion) Nausea chronic - off/on History of COVID-fall: loss of taste and smell, severe flu symptoms - still has altered taste and smell currently. October 2021. Loss of taste/smell, aches, fever, cough. No current problems Anxiety Chronic migraine Surgical History Status post breast reduction second surgery with Dr Carr (2021) History of carpal tunnel release right History of esophagogastroduodenoscopy (EGD) History of bilateral breast reduction surgery (~2012) History of carpal tunnel surgery of left wrist x2 History of reversal of tubal ligation History of bilateral tubal ligation History of colonoscopy History of oral surgery precancerous cysts removed from jaw bone at age 15 History of tooth extraction History of wisdom tooth extraction History of tonsillectomy History of endoscopic sinus surgery History of cryosurgery Cervix H/O abdominoplasty S/P laparoscopic hysterectomy Supracervical Family History Mother Ovarian cancer Heart disease Hypothyroidism Myocardial infarction Multiple sclerosis Diabetes Father Heart disease Myocardial infarction Diabetes Grandfather Breast cancer Daughter Thalassemia Brother Graves disease Other No family history of adverse response to anesthesia Denies family history of Colorectal cancer Social History Smoking Status: Never smoker Second Hand Exposure: No; Do You Dip or Chew Tobacco: No; Hx Alcohol Use: No Hx Substance Use: No Preferred Language: Chadian Communication Ability: Effective Ux Visual Designer Required: No Beliefs That Will Affect Care: None marital status: Current Living Situation: Family Current Living Situation Comment: Lives with current occupational status: employed 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 Physical Exam Constitutional: WD/WN, vitals as above Respiratory: normal respiratory effort Cardiovascular: Rate/Rhythm: regular rate Gastrointestinal (Abdomen): mild abd distention, soft abdomen w/o rebound or guarding, bowel sounds active in all quadrants, mild discomfort w/ palpation Skin: no rashes, warm and dry Results & Data Vital Signs (Past 12 Hours) Vital Signs Temp Pulse Resp BP Pulse Ox O2 Del Method 03/06/25 07:51 97.9 F 96 H 18 126/88 92 Room Air Laboratory Results 03/06/25 Range/Units 06:47 WBC 11.35 H (4.8-10.8) K/ul RBC 4.82 (4.20-5.40) M/uL Hgb 14.8 (12.0-16.0) g/dl Hct 45.5 (37.0-47.0) % MCV 94.4 (80.0-100.0) fL MCH 30.7 (25.0-34.0) pg MCHC 32.5 (32.0-36.0) g/dL RDW Std Deviation 46.0 (36.4-46.3) fL RDW Coeff of Marry 13.2 (11.5-14.5) % Plt Count 245 (130-400) K/uL MPV 9.7 (9.4-12.4) fL Sodium 139 (136-145) mmol/L Potassium 4.5 (3.5-5.1) mmol/L Chloride 99 (98-107) mmol/L Carbon Dioxide 37 H (21-32) mmol/L Anion Gap 3 (3-11) BUN 11 (6-23) mg/dl Creatinine 0.98 (0.6-1.2) mg/dl Est Cr Clr Drug Dosing 52.6 ml/min eGFR 68.16 BUN/Creatinine Ratio 11.2 (10-20) Glucose 109 H (70-99(Fasting)) mg/dl Calcium 9.2 (8.6-10.3) mg/dl PG Care Time/CCT Total # of Minutes Spent Total Time Spent with Patient: Total time spent is greater than 50% in coordination of care (as documented) at patient's floor/unit and/or counseling patient: Coding Level of Care Code 63162 IN/OBS CONSULT LVL 4,60M Diagnoses Abdominal pain R10.33 Abdominal location: periumbilical (1) Abdominal pain Abdominal location: periumbilical Qualified Code(s): R10.33 - Periumbilical pain
--- NOTE | 2025-03-06 15:47 | XRay Report ---
KUB HISTORY: re-assess colonic dilation, COMPARISON STUDY: CT scan earlier today FINDINGS: There is mild diffuse gaseous distention of the colon measuring up to 9 cm diameter at the cecum, stable. No small bowel distention seen. No gross free air. IMPRESSION: Stable exam. ACT 112: Negative or not required by law. The above report was generated using voice recognition software. It may contain grammatical, syntax o r spelling errors. Electronically signed by: Victor Hugo Ibanez M.D. 03/06/2025 3:45 PM
[2025-03-07 06:04] LABS: Hematocrit (blood only) 41.7 % (37.0-47.0); Hemoglobin 13.5 g/dl (12.0-16.0); Mean Corpuscular Hemoglobin 30.3 pg (25.0-34.0); Mean Corpuscular Hgb Conc 32.4 g/dL (32.0-36.0); Mean Corpuscular Volume 93.7 fL (80.0-100.0); Mean Platelet Volume 9.5 fL (9.4-12.4); Platelet Count 206 K/uL (130-400); RDW Coefficient of Variation 13.1 % (11.5-14.5); RDW Standard Deviation 44.9 fL (36.4-46.3); Red Blood Count 4.45 M/uL (4.20-5.40); White Blood Count 6.04 K/ul (4.8-10.8)
[2025-03-07 06:22] LABS: BUN Creatinine Ratio 7.3 (10-20); Calcium 8.9 mg/dl (8.6-10.3); Creatinine Clr Calc Pharmacy 47.3 ml/min; Potassium 4.1 mmol/L (3.5-5.1)
[2025-03-07 07:28] VITALS: RESP 18; TEMP 98.1; O2SAT 95
--- NOTE | 2025-03-07 09:12 | Gastroenterology Progress Note ---
Date of Service March 07, 2025 Assessment & Plan (1) Abdominal pain: Plan: 54 year old female with history of metabolic syndrome, hypothyroidism, anxiety, asthma, chronic constipation, gastroparesis and others below who is admitted through the ED on 03/04 w/ abdominal pain, constipation and nausea w/ report of last BM 02/27. CT on arrival suggests stool burden, some inflammatory changes of descending colon but no signs of obstruction. She was treated w/ a bowel regimen (Mag citrate, enema) and IV ABX. Symptoms persist, repeat CT this AM w/o significant change in dilation, ascending colon dilation at 8.4 cm, mildly dilated fluid-filled distal small bowel. She is awake, alert and oriented w/ mild abdominal distention but no rebound/guarding. She has active bowel sounds w/ mild discomfort w/ palpation. Since CTAP this AM she endorses at least 15 non-bloody BMs w/ some improvement of her abdominal discomfort. KUB / unchanged w/ persistent colonic dilation, around 9CM - she is painfree this AM, continuing to pass stool/gas. - Negative stool PCR - Check fecal calprotectin - KUB to reassess colonic dilation - Continue gastroparesis diet as tolerated - Miralax 1 capful once daily - Cautious use of narcotic analgesia - Cautious use of antiemetics - Plan for OP colonoscopy unless otherwise indicated during admission I spent a total of 40 minutes on the date of service in review of patient's record, and previously obtained information in person and appropriate medical visit, discussion and education of plan, with patient and/or caregiver, placing orders for tests/referral/procedures as medically necessary and documentation of pertinent clinical information in patient's medical records for their visit today.Thank you for allowing us to participate in the care of this patient. Please call with any acute changes, questions or concerns. Please see addendum below with additional recommendation from my supervising physician. Admission and Anticipated Discharge Date Admission Date: March 04, 2025 Supervising Physician Co-Signing Physician Notes I personally saw and examined the patient. I have reviewed the chart and agree with the documentation provided by the PSYCHIATRIC AIDE INSTRUCTOR including discussion about the assessment, treatment and plan. Briefly, doing much better and KUB is improved. Supportive care and a bowel regimen at this point she is stable for discharge. GI will sign off. Subjective Pt was seen and evaluated, chart reviewed. Feeling improved. KUB last evening unchanged. No nausea/vomiting. Tolerating diet. Passing stool/gas. Enroute to repeat KUB this AM. Review of Systems Review of Systems: All other findings negative except as noted in HPI. Physical Exam Constitutional: WD/WN, vitals as above Gastrointestinal (Abdomen): normal bowel sounds, soft, nontender, no hepatosplenomegaly Results & Data Results & Data Vital Signs (Past 12 Hours) Vital Signs Temp Pulse Resp BP Pulse Ox O2 Del Method 03/07/25 07:24 98.1 F 71 18 119/82 95 Room Air Laboratory Results 03/07/25 03/06/25 Range/Units 05:43 16:10 WBC 6.04 (4.8-10.8) K/ul RBC 4.45 (4.20-5.40) M/uL Hgb 13.5 (12.0-16.0) g/dl Hct 41.7 (37.0-47.0) % MCV 93.7 (80.0-100.0) fL MCH 30.3 (25.0-34.0) pg MCHC 32.4 (32.0-36.0) g/dL RDW Std Deviation 44.9 (36.4-46.3) fL RDW Coeff of Marry 13.1 (11.5-14.5) % Plt Count 206 (130-400) K/uL MPV 9.5 (9.4-12.4) fL Sodium 140 (136-145) mmol/L Potassium 4.1 (3.5-5.1) mmol/L Chloride 102 (98-107) mmol/L Carbon Dioxide 35 H (21-32) mmol/L Anion Gap 3 (3-11) BUN 8 (6-23) mg/dl Creatinine 1.09 (0.6-1.2) mg/dl Est Cr Clr Drug Dosing 47.3 ml/min eGFR 60.00 BUN/Creatinine Ratio 7.3 L (10-20) Glucose 91 (70-99(Fasting)) mg/dl Calcium 8.9 (8.6-10.3) mg/dl Stool Calprotectin Pending PG Care Time/CCT Total # of Minutes Spent Total Time Spent with Patient: Total time spent is greater than 50% in coordination of care (as documented) at patient's floor/unit and/or counseling patient: Coding Level of Care Code 37025 SUB INP/OBS CARE 2/35MIN Diagnoses Abdominal pain R10.33 Abdominal location: periumbilical (1) Abdominal pain Abdominal location: periumbilical Qualified Code(s): R10.33 - Periumbilical pain
--- NOTE | 2025-03-07 09:29 | XRay Report ---
KUB HISTORY: reassess colonic dilation COMPARISON STUDY: 03/06/2025 FINDINGS: There is mild gaseous distention of the right and transverse colon measuring up to 6 cm gre atest dimension at the cecum, improved. No small bowel distention seen. No gross free air. IMPRESSION: Improved colonic distention. ACT 112: Negative or not required by law. The above report was generated using voice recognition software. It may contain grammatical, syntax o r spelling errors. Electronically signed by: Victor Hugo Ibanez M.D. 03/07/2025 9:27 AM
[2025-03-07] MEDS: POLYETHYLENE (MIRALAX) 17 GM PACK PO SCH (09:31)
[2025-03-07] MEDS: POLYETHYLENE (MIRALAX) 17 GM PACK PO ONE (14:33)
--- NOTE | 2025-03-07 17:18 | Discharge Summary ---
Discharge Summary Date of Service March 07, 2025 Principal Dx & Hospital Course #1 = Principal Diagnosis (1) Constipation: (2) Hypothyroidism: (3) Acid reflux disease: (4) Colitis: Plan 54-year-old female suffers from chronic constipation presents with periumbilical abdominal pain for 10 days and no bowel movements for [address] scan shows a fluid-filled colon with concern for colitis. Patient has hypothyroidism minor delay in gastric emptying, metabolic syndrome, prediabetes, and vitamin D deficiency. Day of discharge 03/07: Mrs. Truong reports she is feeling much better this morning. She was up ambulating through the halls with her IV pole, and reports she feels back to her "normal self". She began having multiple, liquidy bowel movements last night. These BMs occur every 2 hours or so. No blood in her stool. Brown in color/liquidy in consistency; not formed. No recent antibiotic use; however, patient does have a history of C. difficile infection (approx 20 years ago), which she reports developed after using PCN. No prior history of Crohn's, UC, IBD, or IBS. Overall, she reports that her abdominal pain has resolved, and she is eager to return home today if possible. ROS: Patient endorses frequent/liquid-y stool Patient denies fever, chills, night sweats, dizziness/lightheadedness when ambulating, headache, chest pain, chest palpitations, SOB, cough, abdominal pain, nausea, vomiting, blood in the urine or stool, or numbness or tingling in her arms or legs. #Abdominal pain | Constipation | Colitis | Significant dilatation of the large bowel A/P CT on arrival revealed acute colitis with cecum measuring up to 6.7 cm Serial imaging revealed dilation of large bowel with the following trend: 6.7 cm -> 8.4 cm -> 9.0 cm -> 6.0 cm Patient began having liquidy stool on the evening of 03/06, and dilation large bowel has subsequently improved Overall, patient reports feeling pain-free on 03/07 PCR stool negative C. Diff Gene negative Zosyn discontinued on 03/07 as leukocytosis also resolved GI consult appreciated given dilation of large bowel Fecal calprotectin ordered, pending at time of discharge Reach out to for outpatient GI follow-up appointment to go over pending lab results and schedule potential colonoscopy Okay to restart spironolactone #Leukocytosis (resolved) WBC count elevated at 15.28 on arrival WNL at 6.04 on day of discharge #Hypothyroidism TSH is low T4 is within normal range concern that dose may be too elevated will request the patient follow-up with primary care provider Disposition: Discharge home Admission HPI Per Admitting Provider 54-year-old female presents with abdominal pain with a history of chronic constipation. Reportedly no bowel movement since Wednesday. Pains been for 1-1/2 weeks. Patient sees Alyx Patel for chronic constipation. In the emergency department she had a rectal examination without much stool and attempted to collect suppository. CT scan abdomen pelvis does not show any obstruction but significant stool retention. Patient has leukocytosis and with the significant stool retention concern for stercoral colitis. Admission Exam Per Admitting Provider The patient appeared well nourished and normally developed. Vital signs as documented. Head exam is normocephalic atraumatic Neck is without JVD, thyromegaly, or carotid bruits. Lungs are clear to auscultation, no focal loss of breath sounds Cardiac exam, Rhythm is regular.. No murmurs, rubs or gallops. Abdominal exam reveals normal to hyperactive bowel sounds, soft minor discomfort to the bilateral lower quadrants no rebound or guarding Extremities are nonedematous and both pedal pulses are present Neurologic exam is alert and oriented, no focal loss of strength or sensation Skin is without bruises or rashes Psychologically is without concerns for anxiety or depression. Discharge Exam General: no acute distress; pleasant affect non-toxic appearing; well-nourished; cooperative; SpO2 95% on room HEENT: normocephalic, atraumatic; no scleral icterus; PERRLA; vision and hearing grossly intact Neck: supple; no lymphadenopathy; trachea midline Skin: warm, dry without signs of tenting; no cyanosis; no rashes, bruising, lesions, or erythema noted CV: chest wall NTP; RRR; S1/S2 normal; no murmurs/rubs/gallops; pulses intact and symmetric at radial, DP, and PT Lungs: no acute respiratory distress; symmetrical chest wall expansion; clear breath sounds across all lung wilder w/o adventitious sounds; no wheezing ABD: Soft, NTP in all 4 quadrants; BS present; no rebound/guarding; no distention MSK: no tics or fasciculations; no edema noted in the LEs b/l, nonerythematous Neuro: A&Ox3; normal mood and affect; fluent speech; no focal deficits; sensation intact and symmetric in lower extremities bilaterally Gait: Patient demonstrates the ability to ambulate with her IV without balance deficits or need for assistance Discharge Plan Discharge Items Patient Disposition: Home - Self-Care Reason For Visit: OBSTIPATION, ABD PAIN Discharge Diagnosis: Colitis Condition on Discharge: Good Activity: As commented below Activity Comment: Gradually increase activity as tolerated Non-emergency contact: Primary Care Provider Call non-emergency contact if: you have any medication questions, your symptoms worsen, your pain is concerning for you and you have a fever Follow-up/Referrals: Jeri Gage MD [Primary Care Provider] - Diet: Full liquid Diet Comment: Full liquid x 2 days, then advance to low fat / low fiber diet Addtl Attending Provider Instructions: You were seen at [facility] from 03/04 - 03/07 for abdominal pain secondary to an episode of constipation/colitis. You were treated with an IV antibiotic called Zosyn due to concern for stercoral colitis, as well as MiraLAX for constipation. Your white blood cell count was initially elevated on arrival, but returned to normal on 03/07. Your stool culture came back negative, and antibiotics were discontinued. Additionally, your colon was dilated on arrival, and while it expanded up to a peak measurement of 9 cm, it improved after you began having bowel movements, and it is currently 6 cm on your date of discharge 03/07. Your case was discussed with gastroenterology, and is felt that - as long as you continue to have regular bowel movements, and take medication for constipation daily - you are safe to return home at this time with gastroenterology follow- up. We will be reaching out regarding a gastroenterology follow-up appointment to discuss the findings of one of your pending labs (fecal calprotectin), as well as discuss the potential need for a colonoscopy. A new medication, called Linzess, will be sent to your pharmacy upon discharge. Please take 1 capsule of Linzess daily for constipation/GI discomfort until you are symptoms resolve. Alternatively, if MiraLAX works better for you, this can be taken daily as an alternative. Prior to discharge, a dietitian's came by and gave advice on diet moving forward. It is recommended that you maintain a full liquid diet for the next 2 days. After this period of time, it is recommended that you advance to a low-fat/fiber diet as tolerated, and continue this diet until your symptoms fully resolve. If you develop any new or worsening symptoms (such as severe periumbilical abdominal pain, chest pain, fever, nausea/vomiting, dark tarry stool, or blood in your urine/stool), or if you have any new concerns please return to the emergency department immediately. It was a pleasure taking care of you. Please reach out with any questions or concerns. Sincerely, The Hospital Medicine team at [facility] Pending Studies at Discharge: Yes Studies:: Fecal calprotectin Stand-Alone Forms: My [facility] Medications and DC Order Prescriptions: New Linzess 72 mcg capsule 72 mcg PO DAILY Qty: 14 0RF Rx Instructions: Take 1 capsule by mouth daily until GI symptoms/constipation resolves Continued mecobalamin (vitamin B12) 1,000 mcg tablet,chewable 1,000 mcg PO QAM Qty: 90 3RF famotidine 20 mg tablet 20 mg PO DAILY pantoprazole 40 mg tablet,delayed release (DR/EC) 40 mg PO DAILY ondansetron 4 mg tablet,disintegrating 4 mg PO BID PRN (Reason: Nausea And Vomiting) spironolactone 50 mg tablet 50 mg PO BID Discharge Orders: Discharge Order (Routine); Ordered 03/07/25 Ordered By: Cristiano Galindo/Other Patient Handouts: Low-Fiber Diet, Understanding Colitis Admission Data Admit Date/Time: 03/04/25 12:32 Attending Provider: Tyrell Schuster Admit Provider: Darinel Yi Primary Care Provider: Jeri Gage V. Other Providers: Darinel Yi; Anat Martins Other Interventions: Discharge Summary Assessment (RN) Last Done: 03/07/25 17:42 Hospital Stay Data Consultations 03/04/25 12:23 ED Decision to Admit Stat 03/06/25 13:53 Consult Gastroenterology Routine Diagnostic Imagining Performed 03/04/25 09:30 CT abd pelvis IV con only Stat 03/06/25 09:25 CT Abd and Pelvis [CT abd pelvis wo con] Routine Pending Results Patient Have Any Pending Studies at Discharge: Yes Discharge Instructions Given to Patient (Per Discharging Provider) You were seen at [facility] from 03/04 - 03/07 for abdominal pain secondary to an episode of constipation/colitis. You were treated with an IV antibiotic called Zosyn due to concern for stercoral colitis, as well as MiraLAX for constipation. Your white blood cell count was initially elevated on arrival, but returned to normal on 03/07. Your stool culture came back negative, and antibiotics were discontinued. Additionally, your colon was dilated on arrival, and while it expanded up to a peak measurement of 9 cm, it improved after you began having bowel movements, and it is currently 6 cm on your date of discharge 03/07. Your case was discussed with gastroenterology, and is felt that - as long as you continue to have regular bowel movements, and take medication for constipation daily - you are safe to return home at this time with gastroenterology follow- up. We will be reaching out regarding a gastroenterology follow-up appointment to discuss the findings of one of your pending labs (fecal calprotectin), as well as discuss the potential need for a colonoscopy. A new medication, called Linzess, will be sent to your pharmacy upon discharge. Please take 1 capsule of Linzess daily for constipation/GI discomfort until you are symptoms resolve. Alternatively, if MiraLAX works better for you, this can be taken daily as an alternative. Prior to discharge, a dietitian's came by and gave advice on diet moving forward. It is recommended that you maintain a full liquid diet for the next 2 days. After this period of time, it is recommended that you advance to a low-fat/fiber diet as tolerated, and continue this diet until your symptoms fully resolve. If you develop any new or worsening symptoms (such as severe periumbilical abdominal pain, chest pain, fever, nausea/vomiting, dark tarry stool, or blood in your urine/stool), or if you have any new concerns please return to the emergency department immediately. It was a pleasure taking care of you. Please reach out with any questions or concerns. Sincerely, The Hospital Medicine team at [facility] Total Time Total Time Spent Total Time Spent (In Minutes): 45 Coding [place] [address] INP/OBS DISCH >30 MIN Patient Type Established History Comprehensive Exam Comprehensive Medical Decision Making Moderate Complexity Diagnoses Constipation K59.01 Constipation type: slow transit constipation Hypothyroidism E03.9 Acid reflux disease K21.9 Colitis K52.9
[2025-03-07 17:44] VITALS: BP 102/68; PULSE 88
== END 2025-03-07 18:30 | disposition home or self-care (01) | DRG 392 ==
LOC: ED 08:36 → 3N 12:32 → SUATTDRO 12:32 → 3N 14:10
DX: Z88.0 Allergy status to penicillin; K52.9 Noninfective gastroenteritis and colitis, unspecified; J45.909 Unspecified asthma, uncomplicated; Z88.5 Allergy status to narcotic agent; K21.9 Gastro-esophageal reflux disease without esophagitis; E55.9 Vitamin D deficiency, unspecified; E88.810 Metabolic syndrome; E78.2 Mixed hyperlipidemia; Z88.1 Allergy status to other antibiotic agents; R73.03 Prediabetes; K59.09 Other constipation; Z79.890 Hormone replacement therapy; Z79.899 Other long term (current) drug therapy; E03.9 Hypothyroidism, unspecified